=== PATIENT | female | born 1950 | race Caucasian/White ===

== ENCOUNTER 2019-08-24 21:31 | Emergency (ER) | payer OTHER, MEDICAID ==
[~2019-08-24] VITALS: Ht 156.2 cm; Wt 67.3 kg
[2019-08-24 21:42] VITALS: BP 130/65
--- NOTE | 2019-08-24 21:48 | NUR ---
PT TAKEN TO BED 2
--- NOTE | 2019-08-24 22:07 | NUR ---
69 Y/O FEMALE PLACED IN BED 2 C/O RIGHT FACAL PAIN WITH SWELLING AND FEVER FOR 2 DAYS
--- NOTE | 2019-08-24 22:31 | NUR ---
Dr. Santoyo examining patient.
[2019-08-24] MEDS ORDERED: NACL 0.9% 500 ML IV SCH (22:35)
[2019-08-24] MEDS ORDERED: MORPHINE SULFATE 2 MG/ML SYR IVP ONE (22:35)
[2019-08-24] MEDS ORDERED: PIPERACILLIN/TAZOBACTAM 3.375 GM in DEXTROSE 5% 50 ML IV ONE (22:35)
--- NOTE | 2019-08-24 22:53 | NUR ---
h/l placed in left a/c. blood obtained and sent to lab. ivf started. antibiotics started. b/c already drawn and sent.
[2019-08-24] MEDS ORDERED: PIPERACILLIN/TAZOBACTAM 3.375 GM VIAL IV ONE (22:58)
[2019-08-24 23:02] LABS: BASOPHILS # (AUTO) 0.1 K/uL (0.00-0.22); EOSINOPHILS # (AUTO) 0.1 K/uL (0-0.4); EOSINOPHILS % (AUTO) 1.3 % (0.0-4.0); HEMATOCRIT 42.5 % (36-48); HEMOGLOBIN 14.4 g/dL (12.0-16.0); LYMPHOCYTES # (AUTO) 2.5 K/uL (2.5-16.5); LYMPHOCYTES % (AUTO) 26.3 % (20.5-51.1); MEAN CORPUSCULAR HEMOGLOBIN 32 pg (27-31); MEAN CORPUSCULAR HGB CONC 34 g/dL (33-37); MEAN CORPUSCULAR VOLUME 92.7 fL (80-94); MONOCYTES # (AUTO) 0.7 K/uL (0.8-1.0); MONOCYTES % (AUTO) 7.5 % (1.7-9.3); NEUTROPHILS # (AUTO) 6.2 K/uL (1.8-7.7); NEUTROPHILS % (AUTO) 63.9 % (42.2-75.2); PLATELET COUNT (AUTO) 176 K/uL (140-450); RED BLOOD CELL COUNT(AUTO) 4.58 MIL/uL (4.20-5.40); RED CELL DISTRIBUTION WIDTH 12.3 % (11.6-13.7); WHITE BLOOD COUNT (AUTO) 9.7 K/uL (4.8-10.8)
[2019-08-24 23:29] LABS: ALBUMIN 3.8 g/dL (3.4-5.0); CARBON DIOXIDE 28.2 mmol/L (21-32); CREATININE 0.7 mg/dL (0.6-1.3); POTASSIUM 4.2 mmol/L (3.5-5.1); TOTAL BILIRUBIN 0.5 mg/dL (0.0-1.0)
[2019-08-24 23:58] VITALS: BP 132/71
--- NOTE | 2019-08-24 23:58 | NUR ---
dPatient discharged with v/s stable. She states pain reduced to a tollerable 4/10. Written and verbal after care instructions given and explained. Patient alert, oriented and verbalized understanding of instructions. Ambulatory with steady gait. All questions addressed prior to discharge. ID band removed. Patient advised to follow up with PMD. Rx of [place] and Augmentin given. Patient educated on indication of medication including possible reaction and side effects. Opportunity to ask questions provided and answered.
== END 2019-08-24 23:58 | disposition home or self-care (01) ==
LOC: MED 21:31
DX: K04.7 Periapical abscess without sinus (principal)
CPT/HCPCS: 36415; 80053; 83605; 85025; 87040; 96365; 96375; 99284; J2270; J2543; J7030